=== PATIENT | male | born 1980 | race Two or more races ===

== ENCOUNTER → 2016-07-20 | Outpatient (CLI) | payer MEDICAID, MEDICARE | LOC: RAD 09:05 | PROVIDERS: ATTEND Physician Assistant | DX: G44.311 Acute post-traumatic headache, intractable (principal) | CPT/HCPCS: 70450 ==

== ENCOUNTER 2017-07-28 17:12 | Emergency (ER) | payer MEDICARE, MEDICAID ==
[2017-07-28] MEDS ORDERED: NORMAL SALINE 1000 ML 1,000 ML IV ONE ×2 (17:43→19:11)
--- NOTE | 2017-07-28 17:43 | ER Document Report ---
ED General <JOHN MARIE - Last Filed: 07/29/17 00:04> - General Mode of Arrival: Medic Information source: Patient TRAVEL OUTSIDE OF THE [place] IN LAST 30 DAYS: No <COLLEEN ELIZABETH - Last Filed: 07/29/17 05:52> - General Stated Complaint: POSSIBLE OVERDOSE Time Seen by Provider: 07/28/17 17:42 Notes: 37-year-old male took a bottle of Xanax 1 mg that was prescribed July 19 (90) and total of trazodone 100 mg (30) that was prescribed July 19 at 3 PM today. He states he took it to try to kill himself because his roommate was kicking him out. He has a history of depression. He is drowsy at this time but follows commands. No complaints of pain. I have looked at the medications that he has had for pill bottles and he also takes duloxetine SR 60 mg twice a day which he was not taking consistently, nor the Lunesta or Imuran, and he had a bottle of nortriptyline which belonged to Katiana Murcia was prescribed August 2014, with pills in the bottle. (COLLEEN ELIZABETH) - Related Data Allergies/Adverse Reactions: No Known Allergies Allergy (Unverified 09/15/11 17:36) Past Medical History - General Information source: Patient - Social History Smoking Status: Unknown if Ever Smoked Frequency of alcohol use: 2 beers today Drug Abuse: None Lives with: Other - Roommate Family History: Reviewed & Not Pertinent - Past Medical History Cardiac Medical History: Reports: Hx Heart Attack Pulmonary Medical History: Reports: Hx Asthma Psychiatric Medical History: Reports: Hx Depression Past Surgical History: Reports: Hx Abdominal Surgery, Hx Orthopedic Surgery - left hip - Immunizations Hx Diphtheria, Pertussis, Tetanus Vaccination: Yes <COLLEEN ELIZABETH - Last Filed: 07/29/17 05:52> Review of Systems - Review of Systems -: Yes ROS unobtainable due to patient's medical condition <COLLEEN ELIZABETH - Last Filed: 07/29/17 05:52> Physical Exam <JOHN MARIE - Last Filed: 07/29/17 00:04> - Vital signs Interpretation: Normal - General General appearance: Alert, Other - somnolent - HEENT Head: Normocephalic, Atraumatic Eyes: Normal Pupils: Pinpoint Nasal: Normal Mucous membranes: Dry Pharynx: Normal - Respiratory Respiratory status: No respiratory distress Chest status: Nontender Breath sounds: Normal Chest palpation: Normal - Cardiovascular Rhythm: Regular Heart sounds: Normal auscultation Murmur: No - Abdominal Inspection: Normal Distension: No distension Bowel sounds: Normal Tenderness: Nontender. No: Tender Organomegaly: No organomegaly - Back Back: Normal, Nontender - Extremities General upper extremity: Normal inspection, Nontender, Normal color, Normal ROM , Normal temperature General lower extremity: Normal inspection, Nontender, Normal color, Normal ROM , Normal temperature, Normal weight bearing. No: Jackson's sign - Neurological Neuro grossly intact: Yes Karissa Coma Scale Eye Opening: To Voice Karissa Coma Scale Motor: Obeys Commands Speech: Dysarthria - mild Motor strength normal: LUE, RUE, LLE, RLE Sensory: Normal - Psychological Associated symptoms: Normal affect, Normal mood - Skin Skin Temperature: Warm Skin Moisture: Dry Skin Color: Normal Skin irregularity: negative: Rash <COLLEEN ELIZABETH - Last Filed: 07/29/17 05:52> - Vital signs Vitals: Resp Pulse Ox 21 H 100 07/28/17 17:37 07/28/17 17:37 Notes: satuartion 100% with 2lpm nc, rr 17 now (COLLEEN ELIZABETH) Course - Laboratory Result Diagrams: 07/28/17 18:10 07/28/17 18:10 <JOHN MARIE - Last Filed: 07/29/17 00:04> - Laboratory Result Diagrams: 07/28/17 18:10 07/28/17 18:10 <COLLEEN ELIZABETH - Last Filed: 07/29/17 05:52> - Re-evaluation Re-evalutation: 07/28/17 20:51 Repeat EKG continues to show no dramatic rise of the QRS/QTC. Pt continues to respond to questions appropriately. Vitals stable. No new concerns or complaints at this time. 118/68, 76HR, 100%. 07/29/17 00:04 Pt answers questions appropriately. No new concerns or complaints. Vitals are stable. BP inc to 135/75, HR 74, 100% on RA. We will switch to Psych room in 30 minutes to complete the 6 hour obs time. ( JOHN MARIE) 07/28/17 18:21 Spoke with Tonja at poison control who recommends repeating EKG in 2 hours, if the QRS gets longer than 120 she will need sodium bicarb, if QTC is greater than 500 manage electrolytes magnesium and potassium. Labs are pending. Give IV fluids if blood pressure drops. Monitor patient for at least 6 hours prior to psych admission. EKG at 1739 QRS 96, QTC 479. NSR. 07/28/17 19:01 IVC paperwork has been completed and signed by Dr. salvador wellsectomy it has been faxed to the recruiter account manager. 07/28/17 19:13 EKG at 7:00 shows no prolongation of the QRS or QTC the QTC is actually lower than it was at 530. A second EKG will be ordered for 2100. Transfer care is been given to John THAO at the bedside, pt somnolent but awakens and follows commands. CT head is negative. 07/28/17 19:24 (COLLEEN ELIZABETH) - Vital Signs Vital signs: Temp Pulse Resp BP Pulse Ox 97.5 F 81 15 111/67 100 07/28/17 18:18 07/28/17 18:18 07/29/17 02:01 07/29/17 02:01 07/29/17 02:01 - Laboratory Laboratory results interpreted by me: 07/28/17 07/28/17 07/28/17 18:10 18:10 18:35 RBC 4.30 L Hgb 13.4 L RDW 14.9 H ALT 18 L Urine Blood SMALL H Salicylates < 1.0 L Acetaminophen < 10 L Discharge <JOHN MARIE - Last Filed: 07/29/17 00:04> <COLLEEN ELIZABETH - Last Filed: 07/29/17 05:52> - Discharge Clinical Impression: Xanax and trazodone intentional overdose Condition: Fair Disposition: PSYCH HOSP/UNIT
[2017-07-28 18:23] LABS: ABSOLUTE BASOPHILS # (AUTO) 0.1 10^3/uL (0.0-0.2); ABSOLUTE EOSINOPHILS # (AUTO) 0.1 10^3/uL (0.0-0.6); ABSOLUTE LYMPHOCYTES (AUTO) 1.1 10^3/uL (0.5-4.7); ABSOLUTE MONOCYTES (AUTO) 0.5 10^3/uL (0.1-1.4); ABSOLUTE NEUT (AUTO) 4.2 10^3/uL (1.7-8.2); BASOPHILS % (AUTO) 1.1 % (0-2); EOSINOPHILS % (AUTO) 0.9 % (0-6); HEMATOCRIT 39.8 % (37.9-51.0); HEMOGLOBIN 13.4 g/dL (13.5-17.0); LYMPHOCYTES % (AUTO) 19.1 % (13-45); MEAN CORPUSCULAR HEMOGLOBIN 31.2 pg (27.0-33.4); MEAN CORPUSCULAR HGB CONC 33.7 g/dL (32.0-36.0); MEAN CORPUSCULAR VOLUME 93 fl (80-97); MONOCYTES % (AUTO) 7.9 % (3-13); PLATELET COUNT 274 10^3/uL (150-450); RED CELL DISTRIBUTION WIDTH 14.9 % (11.5-14.0); TOTAL CELLS COUNTED % (AUTO) 100 %; WHITE BLOOD COUNT 5.9 10^3/uL (4.0-10.5)
--- NOTE | 2017-07-28 18:34 | RADIOLOGY REPORT (SQ) ---
EXAM DESCRIPTION: CT HEAD WITHOUT COMPLETED DATE/TIME: 07/28/2017 6:26 pm REASON FOR STUDY: headache COMPARISON: 07/20/2016 and 3 priors TECHNIQUE: Axial images acquired through the brain without intravenous contrast. Images reviewed wi th bone, brain and subdural windows. Images stored on PACS. All CT scanners at this facility use dose modulation, iterative reconstruction, and/or weight based d osing when appropriate to reduce radiation dose to as low as reasonably achievable (ALARA). [facility]: Dose Right [facility]: CareDose [facility]: Dose Right [facility]: Teradose 4D [facility]: Smart [employer] RADIATION DOSE: CT Rad equipment meets quality standard of care and radiation dose reduction techniq ues were employed. CTDIvol: 64.6 mGy. DLP: 1034 mGy-cm. mGy. LIMITATIONS: None. FINDINGS: VENTRICLES: Normal size and contour. CEREBRUM: No masses. No hemorrhage. No midline shift. No evidence for acute infarction. Normal gra y/white matter differentiation. No areas of low density in the white matter. CEREBELLUM: No masses. No hemorrhage. No alteration of density. No evidence for acute infarction. EXTRAAXIAL SPACES: No fluid collections. No masses. ORBITS AND GLOBE: No intra- or extraconal masses. Normal contour of globe without masses. CALVARIUM: No fracture. PARANASAL SINUSES: No fluid or mucosal thickening. SOFT TISSUES: No mass or hematoma. OTHER: No other significant finding. IMPRESSION: NORMAL BRAIN CT WITHOUT CONTRAST. EVIDENCE OF ACUTE STROKE: NO. COMMENT: Quality ID # [id number]: Final reports with documentation of one or more dose reduction techniques (e.g., Automated exposure control, adjustment of the mA and/or kV according to patient size, use of iterative reconstruction technique) TECHNICAL DOCUMENTATION: JOB ID: [id number] [employer]- All Rights Reserved
[2017-07-28 18:49] LABS: ALANINE AMINOTRANSFERASE 18 U/L (21-72); ALBUMIN 4.2 g/dL (3.5-5.0); ALCOHOL 20 mg/dL (NONE DETECTED); ALKALINE PHOSPHATASE 58 U/L (38-126); ANION GAP 12 (5-19); ASPARTATE AMINO TRANSFERASE 26 U/L (17-59); BILIRUBIN,DIRECT 0.3 mg/dL (0.0-0.4); BILIRUBIN,TOTAL 0.5 mg/dL (0.2-1.3); BLOOD UREA NITROGEN 13 mg/dL (7-20); CALCIUM 9.9 mg/dL (8.4-10.2); CARBON DIOXIDE 25 mmol/L (22-30); CHLORIDE 107 mmol/L (98-107); CREATINE KINASE 154 U/L (55-170); GLUCOSE 80 mg/dL (75-110); POTASSIUM 3.8 mmol/L (3.6-5.0); SODIUM 143.7 mmol/L (137-145); TOTAL PROTEIN 7.2 g/dL (6.3-8.2)
[2017-07-28 18:50] LABS: ACETAMINOPHEN < 10 ug/mL (10-30); SALICYLATE < 1.0 mg/dL (2.0-20.0)
[2017-07-28 19:00] LABS: CREATINE KINASE MB 1.08 ng/mL (<4.55)
[2017-07-28 19:04] LABS: TROPONIN I < 0.012 ng/mL
[2017-07-28 19:12] LABS: APPEARANCE,URINE CLEAR; BILIRUBIN,URINE NEGATIVE (NEGATIVE); COLOR,URINE YELLOW; GLUCOSE, URINE NEGATIVE (NEGATIVE); KETONES,URINE NEGATIVE (NEGATIVE); LEUKOCYTE ESTERASE,URINE NEGATIVE (NEGATIVE); NITRITE,URINE NEGATIVE (NEGATIVE); PROTEIN,URINE NEGATIVE (NEGATIVE); URINE SPECIFIC GRAVITY 1.016; UROBILINOGEN,URINE NEGATIVE mg/dL (<2.0)
[2017-07-28 19:29] LABS: URINE AMPHETAMINES SCREEN NEGATIVE; URINE BARBITURATES SCREEN NEGATIVE; URINE BENZODIAZEPINES SCREEN UNCONFIRMED POSITIVE; URINE COCAINE SCREEN NEGATIVE; URINE MARIJUANA (THC) SCREEN NEGATIVE; URINE METHADONE SCREEN NEGATIVE; URINE PHENCYCLIDINE SCREEN NEGATIVE
--- NOTE | 2017-07-28 20:07 | RADIOLOGY REPORT (SQ) ---
EXAM DESCRIPTION: CHEST SINGLE VIEW COMPLETED DATE/TIME: 07/28/2017 7:57 pm REASON FOR STUDY: passed out COMPARISON: 05/19/2014. EXAM PARAMETERS: NUMBER OF VIEWS: One view. TECHNIQUE: Single frontal radiographic view of the chest acquired. RADIATION DOSE: NA LIMITATIONS: None. FINDINGS: LUNGS AND PLEURA: No opacities, masses or pneumothorax. No pleural effusion. MEDIASTINUM AND HILAR STRUCTURES: No masses. Contour normal. HEART AND VASCULAR STRUCTURES: Heart normal in size. Normal vasculature. BONES: No acute findings. HARDWARE: None in the chest. OTHER: No other significant finding. IMPRESSION: NO ACUTE RADIOGRAPHIC FINDING IN THE CHEST. TECHNICAL DOCUMENTATION: JOB ID: [id number] [employer]- All Rights Reserved
--- NOTE | 2017-07-28 22:06 | EKG REPORT ---
SEVERITY:- ABNORMAL ECG - SINUS RHYTHM BORDERLINE RIGHT AXIS DEVIATION BORDERLINE T WAVE ABNORMALITIES : Confirmed by: Mehdi Henriquez MD 28-Jul-2017 22:06:38
--- NOTE | 2017-07-28 22:08 | EKG REPORT ---
SEVERITY:- BORDERLINE ECG - SINUS RHYTHM BORDERLINE RIGHT AXIS DEVIATION BORDERLINE T WAVE ABNORMALITIES : Confirmed by: Mehdi Henriquez MD 28-Jul-2017 22:07:12
--- NOTE | 2017-07-28 22:08 | EKG REPORT ---
SEVERITY:- BORDERLINE ECG - SINUS RHYTHM BORDERLINE T ABNORMALITIES, INFERIOR LEADS BORDERLINE PROLONGED QT INTERVAL : Confirmed by: Mehdi Henriquez MD 28-Jul-2017 22:08:04
--- NOTE | 2017-07-29 09:33 | ER Document Report ---
Doctor's Note Notes: 07/29/17 09:30 Patient presents after an overdose of Xanax and trazodone yesterday. He remains very somnolent. He does awaken to tactile stimuli, falling back asleep quickly. Pulse rate this morning was 113 and patient required 2 L of oxygen. He does maintain his airway. Currently his partner who he has been apart from for 4 months remains at the bedside. Psychiatry will reevaluate as the patient was very somnolent but was able to give consent to discuss further with the patient's prior partner who is in attendance. I have instructed nursing to notify me if he is not able to awaken and have adequate p.o. intake so that we can begin some maintenance IV fluids at least. 07/29/17 10:07 Nurse reports now that the patient is much more awake, drinking water and eating strawberries. He has had his linens changed. Psychiatry will be reevaluating.
--- NOTE | 2017-07-29 09:48 | PSYCHOLOGICAL NOTE ---
Psych Note - Psych Note Psych Note: Reason for Consult: Possible Overdose (Xanax/Trazadone) Consents given: Jermain Angeles, partner, at bedside Patient is a 37 year old male who presented to the Emergency Department, on 07.28.2017, via EMS for a possible overdose. Collateral information was gathered from patient's partner at bedside. Patient briefly awakened and gave verbal consent to speak to his partner. Patient's partner reported they had been together for 10 years but the last four months, the patient has been living with a friend and her due to some conflict in their relationship. He reported the patient was at their home, watching their dogs while he was away on a trip. He said when he spoke to the patient via phone, the patient was on his way back to the house he had been staying at for the last four months. He reported when the patient arrived at that home he found an eviction notice from his friend. The patient's partner reported he believed the eviction was due to damage the patient's four dogs were doing to the carpet in the room he was staying in at the friend's house. The patient's partner reported the patient has struggled with depression for as long as he has known him. He stated the patient's mother dies approximately 17 years ago and the patient continues to grieve over her loss. He reported the patient's father last year. He reported the patient has one other suicide attempt that he is aware of that occurred nine years ago. He stated the patient also took an overdose of pills for that attempt. The partner denied the patient has a history of illegal drug use and stated he occasionally will drink a beer but he has not seen him drink to get intoxicated or experience blackouts. He reported the patient goes to [facility] for psychiatric care and medication management. He stated he is aware of the patient being prescribed Xanax, Trazadone and Lunesta but is unaware of what other medications he is prescribed. He stated the patient last filled his prescriptions on 07.19.17 and when the pill bottles were found they were empty. 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 He reported the patient has had nine surgeries on his hip and has had it replaced twice. Patient 's partner stated they were trying to work out their differences and the patient is able to return to his home when and if he is cleared for discharge. Impression/Plan: Attempted to assess patient multiple times today. Patient has been unable to maintain consciousness for a full assessment to be completed. Consulted with ED physician who has also been unable to rouse patient for any significant interaction. Patient's nurse reported she was able to take vitals and the patient opened his eyes and answered briefly (yes or no only) and promptly fell back to sleep. Patient will be evaluated when he is able to maintain consciousness for the length of the assessment. Consulted with Dr. Puenets in the care and management of this patient.
[2017-07-30] MEDS ORDERED: NICOTINE 21 MG/24 HR PATCH.TD24 TD ONE (03:45)
[2017-07-30 06:36] VITALS: BP 110/77
--- NOTE | 2017-07-30 10:08 | ER Document Report ---
Doctor's Note Notes: 07/30/17 10:07 Patient seen is much more awake today. He has been seen by psychiatry and they were able to discuss further with him. They feel he would benefit from placement for further evaluation and treatment. He has no further physical complaints. Vital signs were reviewed. He does not require any oxygen at this point is taking food and drink without difficulty.
--- NOTE | 2017-07-30 16:09 | PSYCHOLOGICAL NOTE ---
Psych Note - Psych Note Psych Note: Reason for consult: Intentional OD of Trazodone and Xanax Contact Permissions: [id number] Katiana Patient is a 37 year old male in the ED on IVC for an intentional OD of Trazodone and Xanax. Today patient reported being glad he is alive. He stated if it had just been him to worry about and not his 4 dogs he would not have tried to OD. He stated "I did something stupid, other people would think it is stupid, to me at the time it made sense." He admitted to taking sixty 3MG Xanax and twenty-five 50MG Trazodone (he was calculating these in his head based upon when he filled them and how many days should have been missing). He stated since September 2016 he has been "on a weird roller coaster ride of emotions" after the of his father. He was able to reflect and have discussion about triggers (roommates he had been staying with since March 2017 provided 30 day eviction notice, he was concerned about what would happen for him and his 4 dogs, he did not want to return to ex partner's home though ex partner was okay with this) to his decision to OD. 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 He identified his outpatient provider is [facility] and he is prescribed Trazodone/ Xanax/Cymbalta/Lunesta. He stated the Xanax he thinks is 3MG TID but her does not take morning dose because he makes him "feel weird." He noted he had been referred to [facility] by his PCM due to pain and depression surrounding his hip (has had 9 surgeries on it with 2-3 hip replacements). He stated when he first started going to [facility] he was seeing a Ms Jerome who wanted to discuss his mother (has been for 14 years) and he was upset by this since he had been referred due to pain and depression. He admitted to previous hospitalizations (he said he was hospitalize twice in [place] around age 27 and mentioned [facility], he also provided years of 1998/2003/2005 in [place]) all for depression and SI. He acknowledged a previous SI attempt years ago. He denied current SI. He admitted to drinking a couple beers the day he came to the ED ( Serum Alcohol Level was 20 upon arrival) and stated he does not typically drink. He denied drug use. Patient was sleeping. He was easily aroused. He was alert and oriented to person , place, time (in terms of day of week not actual time of day) and situation. Mood appeared depressed with flat affect thought this may have been a result of his lethargy. He denied current SI/HI, stated he was glad he was alive, admitted to taking a bunch of his Trazodone and Xanax, admitted to a previous SI attempt years ago, and talked about future oriented goals (concern with getting all of his belongings from roommates' home by August 25, 2016). He did not appear to be responding to internal stimuli AEB fair eye contact and answering questions appropriately when addressed. Thought processes were tangential with respect to trying to provide a history of what led up to crisis but he required redirection, slowed, and also he seemed to perseverate on his mother from 14 years ago. Conversational speech was monotone yet audible and understandable. Intellectual abilities are estimated to be average. Insight, judgment and impulse control are fair AEB reflection and processing of triggers to crisis. Patient's Cauhrz-wy-Gmo Katiana ([phone]) was at bedside after the initial evaluation. She stated patient "has been very depressed, lots of things overwhelm him, especially his health." She noted she saw patient on Saturday who didn't feel good health crowell (pain due to weather) but otherwise seemed okay. She stated he expressed remorse to her and he has not made any comments or gestures to her about current SI. She acknowledged this was not his first SI attempt and commented how there was one years ago. She stated patient could stay with her and she would be willing to have control of medications and administration. Diagnosis: V60.89 (Z59.2) Discord with [employer] (roommates, they served 30 day eviction notice) V61.10 (Z63.0) Relationship Distress with Intimate Partner (patient moved out of same residence in March 2017) V62.82 (Z63.4) Uncomplicated Bereavement (father around September 2016, may have triggered things from mother's ) 311 (F32.9) Unspecified Depressive Disorder Impression/Plan: Patient is psychiatrically cleared. Recommendation to rescind IVC. He does not meet [place] IVC criteria. He denied current SI/HI, had future oriented thinking (with respect to getting his personal possessions out by the time his 30 days is up for his eviction), and per family expressed remorse/informed this clinician he was glad he was alive. There was no observed psychosis. Patient provided with outpatient resource sheet with both [facility] numbers highlighted and their services explained, as well as [facility] highlighted and documented he should follow up as a walk-in over the next 2 days ( emphasized the sooner the better). Also provided [id number] with an outpatient resource sheet with both [facility] numbers highlighted and explained if she had concern and patient was not being cooperative she could call them. Plan of care included [id number] having control over medications and administration which patient agreed to. Consulted with Dr. Puentes regarding the management and care of patient. ED Physician in agreement with recommendation.
== END 2017-07-30 12:18 | disposition home or self-care (01) ==
LOC: ER 17:12
DX: T42.4X2A Poisoning by benzodiazepines, intentional self-harm, initial encounter (principal); T43.212A Poisoning by selective serotonin and norepinephrine reuptake inhibitors, intentional self-harm, initial encounter; F32.9 Major depressive disorder, single episode, unspecified; Z59.2 Discord with neighbors, lodgers and landlord; Z63.0 Problems in relationship with spouse or partner; Z63.4 Disappearance and death of family member; I25.2 Old myocardial infarction
CPT/HCPCS: 93005; 99285; 96360; 96361; 51701; 36415; 82553; 80307 ×4; 82550; 83735; 85025; 80053; 81001; 84484; 71045; 70450; 93010; J7030

== ENCOUNTER → 2020-06-15 | Outpatient (CLI) | payer MEDICARE ==
--- NOTE | 2020-06-15 17:01 | RADIOLOGY REPORT (SQ) ---
EXAM DESCRIPTION: MRI LT LOWER EXTREMITY COMBO IMAGES COMPLETED DATE/TIME: 06/15/2020 4:37 pm REASON FOR STUDY: M79.89 OTHER SPECIFIED SOFT TISSUE DISORDERS M79.89 OTHER SPECIFIED SOFT TISSUE D ISORDERS COMPARISON: None. TECHNIQUE: Multiplanar imaging of the left hip and thigh to include T1-weighted, postcontrast T1-gosia ghted, and T2-weighted images. CONTRAST TYPE AND DOSE: 10 mL Prohance. RENAL FUNCTION: Not indicated. 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 FINDINGS: There are 3 small fluid collections associated with inflammation extending into the soft t issues adjacent to the femoral component. The largest is in the vastus medialis and measures about 1 .9 x 2.8 cm. Fluid collection along the medial margin of the rectus femoris 2.0 x 0.8 cm. Still sma ller fluid collection is in the vastus lateralis and measures about 0.9 x 1.4 cm. Mildly enlarged inguinal nodes. IMPRESSION: Oral limitations due to metal artifact. Myositis and fasciitis with associated small fl uid collections. Inflammation abuts the posterior and lateral margins of the femoral component of hi p prosthesis. TECHNICAL DOCUMENTATION: JOB ID: [id number] [employer]- All Rights Reserved Reading location - IP/workstation name: [email or web address]
== END ==
LOC: RAD 15:25
PROVIDERS: ATTEND Physician Assistant
DX: M60.852 Other myositis, left thigh (principal)
CPT/HCPCS: 73720; A9576

== ENCOUNTER → 2020-07-25 | Outpatient (CLI) | payer MEDICARE, MEDICAID ==
[2020-07-25 11:53] LABS: ABSOLUTE BASOPHILS # (AUTO) 0.1 10^3/uL (0.0-0.2); ABSOLUTE EOSINOPHILS # (AUTO) 0.2 10^3/uL (0.0-0.6); ABSOLUTE LYMPHOCYTES (AUTO) 2.4 10^3/uL (0.5-4.7); ABSOLUTE MONOCYTES (AUTO) 0.6 10^3/uL (0.1-1.4); ABSOLUTE NEUT (AUTO) 6.2 10^3/uL (1.7-8.2); BASOPHILS % (AUTO) 0.6 % (0-2); HEMATOCRIT 28.9 % (37.9-51.0); HEMOGLOBIN 9.8 g/dL (13.5-17.0); LYMPHOCYTES % (AUTO) 25.3 % (13-45); MEAN CORPUSCULAR HEMOGLOBIN 27.8 pg (27.0-33.4); MEAN CORPUSCULAR HGB CONC 33.8 g/dL (32.0-36.0); MEAN CORPUSCULAR VOLUME 82 fl (80-97); MONOCYTES % (AUTO) 6.6 % (3-13); PLATELET COUNT 422 10^3/uL (150-450); RED BLOOD COUNT 3.51 10^6/uL (4.35-5.55); RED CELL DISTRIBUTION WIDTH 16.1 % (11.5-14.0); SEGMENTED NEUTROPHILS % (AUTO) 65.5 % (42-78); TOTAL CELLS COUNTED % (AUTO) 100 %; WHITE BLOOD COUNT 9.5 10^3/uL (4.0-10.5)
[2020-07-25 12:17] LABS: ALBUMIN 3.5 g/dL (3.5-5.0); ALKALINE PHOSPHATASE 80 U/L (38-126); ASPARTATE AMINO TRANSFERASE 23 U/L (17-59); BILIRUBIN,DIRECT 0.2 mg/dL (0.0-0.4); BILIRUBIN,TOTAL 0.4 mg/dL (0.2-1.3); BLOOD UREA NITROGEN 10 mg/dL (7-20); C-REACTIVE PROTEIN 40.8 mg/L (<10.0); CALCIUM 9.3 mg/dL (8.4-10.2); GLUCOSE 85 mg/dL (75-110); POTASSIUM 3.9 mmol/L (3.6-5.0)
[2020-07-25 12:20] LABS: CARBON DIOXIDE 30 mmol/L (22-30); CHLORIDE 105 mmol/L (98-107)
[2020-07-25 12:37] LABS: ERYTHROCYTE SEDIMENTATION RATE 69 mm/hr (0-15)
[2020-07-25 13:16] LABS: ANION GAP 4 (5-19)
== END ==
LOC: WC 11:00
PROVIDERS: ATTEND Plastic Surgery
DX: T81.31XA Disruption of external operation (surgical) wound, not elsewhere classified, initial encounter (principal)
CPT/HCPCS: 36415; 80053; 85025; 85652; 86140